=== PATIENT | female | born 1990 ===

== ENCOUNTER 2018-04-08 19:21 | Emergency (ER) | payer MEDICAID ==
--- NOTE | 2018-04-08 20:58 | OBHP ---
Datetime: 04/08/2018 20:09 IP Adm Impression: Term, intrauterine ; No Active Labor; Intact Membranes IP Admit Plan: Discharge home Admit Comment, IP Provider: Makayla [id number] Patient did not bring her records PNP: [facility] 27 y/o 39.5 wks gestation with JULI 04/10/2018 _ LMP 06/06/2017 presenting bc of contractions cooper t began at 5am and worsened to 3/10 in nature. Patient denies any vaginal bleeding, fluid loss or com plications during this . movement within the last hour. OBGYNx: Troy ORNELAS, 09/23/2008 PMH: none Famhx: none Sochx: no Tob, EtOH or drugs Surghx: none Allergies: none Meds: ROS: Denied dizziness, headache, blurry vision, cp, sob, n/v/d or dysuria PE: well appearing female Cardio: s1s2 no mumurs Abd: BS + Vag: closed, thick, and high Ext: calf nontender A/P: 27 y/o 39.5 wks gestation with JULI 04/10/2018 _ LMP 06/06/2017 1. Patient is not in labor, cervix close, without documentation of records. ultraso und performed, cephalic presentation. 2. Given labor instructions _ discharged. Case discussed with Dr. Janina Owen PGY-1 OB Hospitalist on-call With PGY1, I saw an examined this pateint. Agree with note. Not in labor. Labor instructions. a dvised pt to bring records when she comes to ER...f/u next week as scheduled Abdomen - PN: Normal Heart - PN: Normal General - PN: Normal Presentation-Admit: Vertex FHR - Baseline A Provider: 140 Membranes, Provider: Intact Contraction Comments Provider: OCC Gestation - Est Wks by US: 39.5 EGA AdmitDate IP: 39.5 Vital Signs Provider: Reviewed; Within Normal Limits IP Chief Complaint: Uterine contractions NICHD Variability Prov Fetus A: Moderate 6-25bpm NICHD Accel Fetus A IP Provider: 15X15 FHR Category Provider Fetus A: Category I NICHD Decel Fetus A IP Provider: None Dilatation, Provider: 0 Effacement, Provider: 0 Station, Provider: high DTRs - PN: Normal
--- NOTE | 2018-04-08 21:00 | OBDCSUM ---
Datetime: 04/08/2018 20:19 Discharged to, Provider: Home Follow up at, Provider: [facility] Disch Instr Activity: Normal activity Disch Instr Diet: Regular Discharge Instructions, Provider: Routine instructions given Discharge Diagnosis, Provider: False Labor - Undelivered Discharge Time: 04/08/2018 20:25 Follow up in weeks, Provider: 04/10/2018 Disch Referrals: None Contraception discussed, Prov: No Disch Activity Restrictions: No lifting Discharge Comment, Provider: OB Hospitalist on-call With PGY1, I saw an examined this pateint. Agree with note. Not in labor. Labor instructions. a dvised pt to bring records when she comes to ER...f/u next as scheduled
[2018-04-09 01:40] VITALS: BP 113/67; PULSE 87; RESP 17; TEMP 98.6
== END 2018-04-08 20:25 | disposition home or self-care (01) ==
LOC: H.EROB2 19:21
DX: O26.93 Pregnancy related conditions, unspecified, third trimester (principal); R10.2 Pelvic and perineal pain; O47.1 False labor at or after 37 completed weeks of gestation; Z3A.39 39 weeks gestation of pregnancy

== ENCOUNTER 2018-04-16 17:37 | Inpatient (IN) | payer MEDICAID ==
[2018-04-16 18:16] VITALS: BMI 25.2
[2018-04-16] MEDS ORDERED: Lactated Ringer's 1,000 ML IV ONE (18:36)
[2018-04-16] MEDS ORDERED: Lactated Ringer's 1,000 ML IV SCH (18:45)
[2018-04-16] MEDS ORDERED: Oxytocin 30 units/LR 500ML 30 U/500 ML BAG IV ONE (19:30)
[2018-04-16 19:57] LABS: BASO % 0.3 % (0.0-2.0); EOS # 0.1 K/uL (0.0-0.7); EOS % 1.1 % (0.0-4.0); HEMOGLOBIN 13.2 g/dL (12.0-16.0); LYMPH # 1.7 K/uL (1.0-4.3); LYMPH % 27.5 % (20.0-40.0); MEAN CELL VOLUME 89.9 fl (81.0-99.0); MEAN CORPUSCULAR HEMOGLOBIN 30.7 pg (27.0-31.0); MEAN CORPUSCULAR HGB CONC 34.2 g/dL (33.0-37.0); MEAN PLATELET VOLUME 8.5 fl (7.2-11.7); MONO # 0.7 K/uL (0.0-0.8); MONO % 11.2 % (0.0-10.0); NEUT # 3.8 K/uL (1.8-7.0); NEUT % 59.9 % (50.0-75.0); NRBC % 0.1 % (0.0-0.0); RBC 4.29 Mil/uL (3.80-5.20); RED CELL DISTRIBUTION WIDTH 15.2 % (11.5-14.5); WHITE BLOOD COUNT 6.3 K/uL (4.8-10.8)
[2018-04-16 20:06] VITALS: RESP 18
[2018-04-17] MEDS ORDERED: cefOXitin IV 1 gm in Dextrose 1 GM/50 ML BAG IVPB ONE ×2 (06:23→06:30)
[2018-04-17] MEDS ORDERED: Propofol 10 mg/ml Inj (20 ML) ONE (06:31)
[2018-04-17] MEDS ORDERED: Succinylcholine 200 mg/10 ml Inj IV ONE (06:31)
[2018-04-17] MEDS ORDERED: Oxycodone/Acetaminophen 5/325 mg Tab PO PRN (07:25)
[2018-04-17] MEDS ORDERED: Acetaminophen-Codeine 300/30 mg Tab PO PRN ×2 (07:25→11:19)
[2018-04-17] MEDS ORDERED: Lactated Ringer's 1,000 ML IV SCH (07:30)
--- NOTE | 2018-04-17 08:09 | OBADHP ---
Datetime: 04/16/2018 18:41 Admit Comment, IP Provider: 28 yo at 41.6 wks presenting for induction because she is post d ates. movement appreciated. Patient denied vaginal bleeding, contractions, loss of fluid. OBGYNhx: , 2008, M spontaneous x2 (2014-3wks; 2015-6wks) PMH: none Famhx: none Sochx: no Tobacco, EtoH or drugs Allergies: none Meds: none Ros: Denies headache, cp, sob, n/v/d Vitals: BP: spo2 100% Pulse: 91 Temp: PE: Gen: well appearing female in no acute distress Cardio: s1 s2 auscultated, no murmurs Resp: clear to auscultation b/l Abd: BS + Ext: calves nontender 1.5 minute of decel noted. Patient placed in Left lat decubital position; HR elevated to 130 's, and currently stable. A/P: 28 yo at 41.6 wks presenting for induction bc of postdates. 1. Patient admitted to the unit , induction protocol initiated. Case discussed with Dr. Neville Owen PGY-1 Abdomen - PN: Normal Lungs - PN: Normal Heart - PN: Normal General - PN: Normal FHR - Baseline A Provider: 140 Gestation - Est Wks by US: 41.6 Vital Signs Provider: Reviewed; Within Normal Limits IP Chief Complaint: Scheduled induction of labor Genitourinary Exam: Normal EGA AdmitDate IP: 40.6 IP Adm Impression: Postterm, intrauterine IP Admit Plan: Admit to unit; Initiate labor induction protocol Datetime: 04/08/2018 20:09 Presentation-Admit: Vertex Membranes, Provider: Intact Contraction Comments Provider: OCC NICHD Variability Prov Fetus A: Moderate 6-25bpm NICHD Accel Fetus A IP Provider: 15X15 FHR Category Provider Fetus A: Category I NICHD Decel Fetus A IP Provider: None Dilatation, Provider: 0 Effacement, Provider: 0 Station, Provider: high DTRs - PN: Normal
--- NOTE | 2018-04-17 08:17 | OBPN ---
Datetime: 04/17/2018 06:10 IP Progress Impression Other: persistent bradycardia IP Informed Consent Obtain: Section Delivery; Risks, Benefits and Alternatives Discussed IP Procedures: Sterile Vag Exam IP Progress Plan: Deliver- Section FHR - Baseline A Provider: 60s-80s IP Progress Note Comment: Patient with persistent bradycardia. Attempts at maternal reposition ing, stimulation, oxygen supplementation, and terbutaline administration did not change or impr ovement heart tracing. Discussed with patient the need for immediate section due to pe rsistent bradycardia. Discussed with patient the risks, benefits, alternatives of surgery all p atient questions answered. Verbally consented for . Anesthesia and pediatrics notified. FHR Category Provider Fetus A: Category III NICHD Variability Prov Fetus A: Absent - Undetectable NICHD Decel Fetus A IP Provider: Prolonged Datetime: 04/16/2018 18:41 Gestation - Est Wks by US: 41.6 Vital Signs Provider: Reviewed; Within Normal Limits Datetime: 04/08/2018 20:09 Membranes, Provider: Intact Contraction Comments Provider: OCC Presentation-Admit: Vertex NICHD Accel Fetus A IP Provider: 15X15 Dilatation, Provider: 0 Effacement, Provider: 0 Station, Provider: high
--- NOTE | 2018-04-17 08:44 | OBDS ---
DELIVERY PERSONNEL Delivery Doctor: Gigi Lozada MD Finance Consultant: Alexandra Gonzales M. Anesthesiologist: Gigi Baxter MD Resident: Dr. Shin MATERNAL INFORMATION Delivery Anesthesia: General Medications in Delivery: Pitocin Estimated Blood Loss (ml): 1000 Placenta Cultured: Yes Maternal Complications: None Provider Comments: Primary low flap transverse section. The uterine incision extension via Pfannenstiel incision. Patient delivered viable infant with Apgars of 9 and 9 at one and 5 minutes respectively. Due to difficulty in delivering the head, vacuum-assisted delivery with Kiwi suction device. After suction applied, delivered with gentle traction without complication. Remainder of deli holly without complication. Fluids 1200 mL lactated Ringer's Estimated blood loss 1000 mL Urine output 800 mL of clear urine No complications Patient tolerated procedure well. LABOR SUMMARY EDC: 04/10/2018 00:00 No. Babies in Womb: 1 Attempted: No Labor Anesthesia: General LABOR INFORMATION Reason for Induction: Postterm Onset of Labor: 04/16/2018 14:00 Cervical Ripening Agents: Cervidil (Annotations: Cervidil inserted by Dr. Lozada ) Oxytocin: N/A Group B Beta Strep: Negative Antibiotics # of Doses: 1 Antibiotics Time of Last Dose: 629 Steroids Given: None Reason Steroids Not Administered: Not Applicable MEMBRANES Membranes Rupture Method: Spontaneous Rupture of Membranes: 04/17/2018 06:39 Length of Rupture (hrs): 0.00 Amniotic Fluid Color: Clear Amniotic Fluid Amount: Moderate Amniotic Fluid Odor: Normal STAGES OF LABOR Stage 3 hrs: 0 Stage 3 min: 1 Total Time in Labor hrs: 16 Total Time in Labor min: 40 CSECTION DELIVERY Primary Indication: Prolonged Deceleration Phase CSection Urgency: Emergency CSection Incidence: Repeat Labor: No Labor Elective: Nonelective CSection Incision: Lower Uterine Transverse; T Extension of Incision Uterine Closure: Double-layer closure BABY A INFORMATION Infant Delivery Date/Time: 04/17/2018 06:39 Method of Delivery: Born in Route : No : N/A Forceps: N/A Vacuum Extraction: Successful Shoulder Dystocia : No ASSISTED DELIVERY BABY A Vacuum Number of Pulls: 1 Vacuum Number of PopOffs: 0 Vacuum/Forceps Comment: Dr. Lozada applied Vacum on infants head during Stat delivery, n o pop off and vacum successful SHOULDER DYSTOCIA BABY A Infant Delivery Date/Time: 04/17/2018 06:39 PRESENTATION/POSITION BABY A Presentation: Cephalic Cephalic Presentation: Vertex Breech Presentation: N/A PLACENTA INFORMATION BABY A Placenta Delivery Time : 04/17/2018 06:40 Placenta Method of Delivery: Expressed Placenta Status: Delivered SCORES BABY A Heart Rate 1 min: >100 bpm Resp Effort 1 min: Good Cry Reflex Irritability 1 min: Cough or Sneeze or Pulls Away Muscle Tone 1 min: Active Motion Color 1 min: Body [place], Extremities Blue Resuscitation Effort 1 min: Tactile Stimulation SCORE 1 MIN: 9 Heart Rate 5 min: >100 bpm Resp Effort 5 min: Good Cry Reflex Irritability 5 min: Cough or Sneeze or Pulls Away Muscle Tone 5 min: Active Motion Color 5 min: Body [place], Extremities Blue Resuscitation Effort 5 min: N/A SCORE 5 MIN: 9 INFANT INFORMATION BABY A Gestational Age at Delivery: 41.0 Gestational Status: Post-term Infant Outcome : Liveborn Condition : Stable Sex: Male IDENTIFICATION/MEDS BABY A ID Band Number: [id number] ID Band Location: Left Leg; Left Arm WEIGHT/LENGTH BABY A Infant Birthweight (gms): 3580 Weight (lb): 7 Infant Weight (oz): 14 CORD INFORMATION BABY A No. Cord Vessels: 3 Nuchal Cord : N/A Infant Cord pH Baby Arterial: sent to lab Cord Blood Taken: Yes Suction: Mouth; Nose ASSESSMENT BABY A Infant Care By: Elsy Del Real RN
[2018-04-17] MEDS ORDERED: Multivitamin With Minerals Tab PO SCH (09:00)
[2018-04-17] MEDS ORDERED: Simethicone 80 mg Chewtab PO SCH (10:00)
--- NOTE | 2018-04-17 10:58 | RAD ---
Date of service: 04/17/2018 HISTORY: stat OR COMPARISON: No prior. FINDINGS: BOWEL: There is a nonobstructive bowel gas pattern appreciated. No large free intrarenal gas collections identified however there is an ovoid density identified at the central to right jael abdomen/ upper pelvis. This may be an enlarged uterus in this patient who is reportedly post dates induction. Clinically correlate further. Surgical skin betty are seen at the inferior pelvis soft tissues, presumably anteriorly. No suspicious intra-abdominal calcifications are identified. BONES: Normal. OTHER FINDINGS: None. IMPRESSION: Nonobstructive bowel gas pattern identified. Ovoid density at the right jael abdomen/ pelvis may reflect enlarged uterus post delivery. Clinically correlate further. Skin betty noted overlying the region of the pelvis.
[2018-04-17] MEDS: Oxycodone/Acetaminophen 5/325 mg Tab PO PRN ×2 (14:31→18:47)
[2018-04-17] MEDS: Simethicone 80 mg Chewtab PO SCH ×2 (16:56→21:46)
--- NOTE | 2018-04-17 20:14 | OP ---
PROCEDURE DATE: 04/17/2018 PREOPERATIVE DIAGNOSIS: Persistent bradycardia. POSTOPERATIVE DIAGNOSIS: Persistent bradycardia. OPERATION PERFORMED: Primary low-flap transverse section via Pfannenstiel incision, extension of uterine incision. OPERATIVE FINDINGS: Viable with Apgars of 9 and 9 at 1 and 5 minutes respectively, normal uterus, and normal tubes and ovaries bilaterally. FLUIDS: 1200 mL lactated Ringer's. ESTIMATED BLOOD LOSS: 1000 mL. URINE OUTPUT: 800 mL of clear urine at the end of procedure. COMPLICATIONS: No complications. SURGEON: Gage Lozada M.D. ANESTHESIOLOGIST: Dr. Baxter. ANESTHESIA: Spinal. DESCRIPTION OF PROCEDURE: The patient was taken to the operating room where general anesthesia was found to be adequate. The patient was prepped and draped in normal sterile fashion in the dorsal supine position with leftward tilt. A Pfannenstiel skin incision was made with the scalpel. This was carried down through to the underlying layer of fascia with scalpel. Midline defect was made in the fascial layer with scalpel. The fascial layer was opened with curved Oliveira scissors. The fascial layer was from the underlying rectus muscles bluntly. The rectus muscles were at the midline. The peritoneum was then identified and entered bluntly. The peritoneal incision was extended bluntly. [place] retractor was placed over the urinary bladder. The uterus was incised with the scalpel. The uterine incision was extended bilaterally bluntly. Due to difficulty delivering the infant's head, decision was made to extend the uterine incision. The uterine incision was extended at the midline superiorly approximately 3 to 4 cm. Suction device was placed to the infant's head and suction device activated. With gentle traction, infant's head delivered atraumatically. Suction device deactivated and removed from head. The remainder of the infant was delivered without complication. The cord was clamped and cut. The infant was handed off to the waiting pediatricians. Cord gases were collected. Cord blood was collected. The placenta was removed manually. The uterus was cleared of all clots and debris. The vertical portion of the uterine incision was repaired with 0 Vicryl in a running, locked fashion. This was repaired in two layers. The horizontal portion of the uterine incision was repaired with 0 Vicryl in a running, locked fashion. The second layer of same suture was used to imbricate the first and to obtain excellent hemostasis. The re-inspection of the uterine incision proved excellent hemostasis. The abdomen and pelvis were irrigated with copious amounts of warm normal saline. Re-inspection of the uterine incision proved excellent hemostasis. All instruments were removed from the patient. The peritoneal layer was closed with a running stitch of 2-0 chromic. The rectus muscles were re-approximated with a running stitch of 2-0 chromic. The fascial layer was closed with a running stitch of 0 Vicryl. The skin was closed with betty. The patient tolerated the procedure well. All sponge, lap, and needle counts were correct x2. Due to inability to count all instruments before starting procedure, abdominal and pelvic x-ray was completed in the operating room to ensure no retained instruments. The patient tolerated the procedure well. The patient was given 1 gm of Ancef just prior to the beginning of the procedure. There were no complications. The patient was taken to the recovery room in awake and stable condition. Gage Lozada MD
[2018-04-18] MEDS: Oxycodone/Acetaminophen 5/325 mg Tab PO PRN ×4 (00:08→20:50)
[2018-04-18] MEDS: Simethicone 80 mg Chewtab PO SCH ×5 (04:28→20:53)
[2018-04-18 06:36] LABS: HEMOGLOBIN 12.4 g/dL (12.0-16.0); MEAN CELL VOLUME 90.9 fl (81.0-99.0); MEAN CORPUSCULAR HEMOGLOBIN 31.3 pg (27.0-31.0); MEAN CORPUSCULAR HGB CONC 34.4 g/dL (33.0-37.0); RBC 3.97 Mil/uL (3.80-5.20); RED CELL DISTRIBUTION WIDTH 15.3 % (11.5-14.5)
[2018-04-18] MEDS: Multivitamin With Minerals Tab PO SCH (08:50)
[2018-04-19] MEDS: Simethicone 80 mg Chewtab PO SCH ×6 (05:44→21:30)
[2018-04-19] MEDS: Multivitamin With Minerals Tab PO SCH (09:57)
--- NOTE | 2018-04-19 22:36 | OBPPN ---
Datetime: 04/19/2018 07:15 PP Pain Prov: Within normal limits PP Nausea Prov: Denies PP Flatus Prov: Yes PP BM Prov: No PP Breasts Prov: Not Done PP Heart Prov: Normal PP Lungs Prov: Normal PP Abdomen/Uterus Prov: Normal PP Lochia Prov: Normal PP Vulva/Perineum Prov: Not Done PP CVA Tenderness Prov: Normal PP Extremities Prov: Normal PP C/S Incision Prov: Normal PP Progress Prov: Normal PP Impression Prov: Normal progression PP Plan Prov: Continue present management PP Progress Note Prov: POD 2 S: 28 yo s/p on 04/17/2018. Pt. is seen and examined at bedside this AM. No overn ight events. Pt reports mild abdominal pain, but well controlled with pain meds. D/c todd, dressing removed, incision site healing well, no exudate seen, dry and intact. No nausea, advised to advance d iet as tolerated. Breast feeding without difficulty. Lochia is similar to menses volume. No bowel mov ement, but passing gas per rectum. Denies fever/chills, diarrhea, nausea/vomiting, chest pain, dyspne a, and dizziness. O: VS: stable GEN: NAD Cardio: S1S2, no murmurs Lungs: clear breath sounds b/l, no wheezing Abdomen: BS+, tenderness to palpation. Incision scar noted, well healing with no exudate seen, dry and intact. Uterus is firm and at the level of the umbilicus. EXT: No edema, calves nontender NEURO/PSYCH: AAOx3, no grossly focal deficits, preserved affect and mood. Assessment/Plan: 28 yo s/p on 04/17/2018. Pt remains afebrile, tolerating pain wi th medication, doing well on POD#2. OOB with caution SCDs for DVT prophylaxis, encouraged ambulating Percocet 5/325mg, and Motrin 600mg for pain. Encourage and ambulating f/u CBC post op: 12.4/36.1 Tdap given Anticipated d/c to home, 04/20/2018. Case dw OB attending --- Juliano Crawlye MD PGY-2 OB Hospitalist note: On rounds I saw and examined this patient. Agree with note WILNER LOMELI PP Procedures: None Vital Signs Provider PP: Reviewed; Within Normal Limits Vital Signs Provider Details PP: 80 bpm at 0800
[2018-04-20] MEDS: Simethicone 80 mg Chewtab PO SCH ×2 (05:33→09:13)
[2018-04-20] MEDS: Multivitamin With Minerals Tab PO SCH (09:13)
[2018-04-20 18:11] VITALS: BP 105/52; PULSE 76; TEMP 98.1; O2SAT 99
== END 2018-04-20 12:11 | disposition home or self-care (01) | DRG 371 ==
LOC: H.EROB2 17:37 → H.L&D 18:37 → H.OB/GYN 04-17 10:44
PROVIDERS: ADMIT Obstetrics & Gynecology; ATTEND Obstetrics & Gynecology
PROC: 4A1HXCZ Monitoring of Products of Conception, Cardiac Rate, External Approach (ICD-10-PCS; 2018-04-16)
PROC: 10D00Z1 Extraction of Products of Conception, Low, Open Approach (ICD-10-PCS; principal; 2018-04-17)
DX: O76 Abnormality in fetal heart rate and rhythm complicating labor and delivery (principal); O48.0 Post-term pregnancy; Z3A.41 41 weeks gestation of pregnancy; Z37.0 Single live birth